=== PATIENT | female | born 1945 | race Caucasian/White ===

== ENCOUNTER 2024-02-28 16:37 | Emergency (ER) | payer MEDICARE, SELFPAY ==
[2024-02-28] VITALS (7 sets, daily range): BP systolic 136–152; BP diastolic 59–77; BMI 35.3
--- NOTE | 2024-02-28 17:07 | EDRN ---
Gabrielle Cedillo PA in room w/ pt at this time.
[2024-02-28 17:11] LABS: % Basophils 1.2 % (0-2); % Eosinophils 7.9 % (0-6); % Immature Granulocytes 0.3 % (0-0.5); % Lymphocytes 19.5 % (20.5-51.1); % Monocytes 10.6 % (1.7-9.3); % Neutrophils 60.5 % (42.2-75.2); Absolute Basophils 0.1 10^3/uL (0-0.2); Absolute Eosinophils 0.5 10^3/uL (0-0.7); Absolute Lymphocytes 1.3 10^3/uL (1.2-3.4); Absolute Monocytes 0.7 10^3/uL (0.1-0.6); Hematocrit 36.2 % (37.0-47.0); Hemoglobin 12.3 g/dL (12.0-16.0); Mean Corpuscular Hgb 30.8 pg (27.0-31.0); Mean Corpuscular Volume 90.5 fL (81.0-99.0); Nucleated Red Blood Cells % 0 %; Platelet Count 237 10^3/uL (130-400); Red Cell Dist. Width 13.6 % (11.5-14.5); White Blood Cell Count 6.6 10^3/uL (4.8-10.8)
[2024-02-28 17:24] LABS: ALT (SGPT) 11 U/L (0-35); AST (SGOT) 20 U/L (14-36); Albumin 4.1 g/dl (3.5-5.0); Alkaline Phosphatase 97 U/L (38-126); Blood Urea Nitrogen 31 mg/dl (7-17); Calcium 8.9 mg/dl (8.4-10.2); Carbon Dioxide 25 mmol/L (22-30); Chloride 105 mmol/L (98-107); Estimated Creatinine Clearance 37 ml/min; Glucose 114 mg/dl (70-99); Potassium 4.7 mmol/L (3.5-5.1); Sodium 138 mmol/L (135-145); Total Bilirubin 0.4 mg/dl (0.2-1.3); Total Protein 6.7 g/dl (6.3-8.2); eGFR 35.23
[2024-02-28 17:35] LABS: Troponin I < 0.012 ng/ml
--- NOTE | 2024-02-28 18:04 | ED.GENMED ---
History of Present Illness
<Cathleen Cedillo PA-C - Last Filed: 02/28/24 19:16>
General
Chief Complaint: Chest Pain
Source: patient
Exam Limitations: none
Time Seen by Provider: 02/28/24 16:53
Nursing documentation reviewed up to this point in time: agreed with
History of Present Illness
History of Present Illness:
Patient is a 78-year-old female with past medical history of hypertension,GERD, who presents to the emergency department from her nursing facility for evaluation of chest pain that started 30 to 60 minutes ago. Patient reports that the pain started
while she was sitting at rest, watching funny videos about cats and dogs. Patient reports that it has been about a 5 out of 10 the entire time. Patient denies that it radiates anywhere, she denies any pain into her neck, jaw, arms. Patient denies
any associated shortness of breath, nausea, vomiting. Patient denies any numbness, weakness, tingling of any of her extremities. Patient reports no significant cardiac history, she reports that she does not follow-up with a institutional nutrition consultant regularly
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 Patient denies any recent lower extremity edema.
Past History
<Cathleen Cedillo PA-C - Last Filed: 02/28/24 19:16>
Past History
ED Past Medical History: Cancer (Skin CA, basal cell left eye), GERD, HTN, Renal failure (Chronic kidney disease) and Other (Osteoarthritis, Blind )
ED Past Surgical History: Appendectomy and Gynecological (Hysterectomy)
Social History
Tobacco: Former smoker
Alcohol: None
Drug: None
Personal:
Living: assisted living
Family History
Family History: Other (Noncontributory)
Review of Systems
<Cathleen Cedillo PA-C - Last Filed: 02/28/24 19:16>
Review of Systems
All Other Systems: Not applicable
Constitutional: Reports no symptoms
EENT: Reports no symptoms
Respiratory: Reports no symptoms
Cardiac: Reports chest pain
ABD/GI: Reports no symptoms
: Reports no symptoms
Musculoskeletal: Reports no symptoms
Skin: Reports no symptoms
Neurological: Reports no symptoms
Endocrine: Reports no symptoms
Hematologic/Lymphatic: Reports no symptoms
Psychiatric: Reports no symptoms
Phy Exam
<Cathleen Cedillo PA-C - Last Filed: 02/28/24 19:16>
General Physical Exam
General Presentation: well appearing and no apparent distress
General Skin: warm and dry
General Habitus: normal
General Mental: alert
General Hydration: appears well hydrated
ENT Exam
ENT Exam: EOMI, pharynx normal, neck supple and normocephalic
Eye Exam
Eye Exam: PERRL, cornea clear and conjunctiva normal
Cardiovascular Exam
Cardiovascular Exam: regular rate/rhythm, no edema, no murmur and normal peripheral pulses
Pulmonary Exam
Pulmonary Exam: lungs clear, no respiratory distress, no rales, no crackles, no rhonchi, no stridor, no wheezing and no cough
Gastrointestinal Exam
Gastrointestinal Exam: normal bowel sounds, non tender, soft, no organomegaly, no pulsatile mass and non distended
Neurological Exam
Neurological Exam: alert, oriented x3, no motor deficits and speech normal
Musculoskeletal Exam
Musculoskeletal Exam: full ROM, no edema and other (Mild tenderness to palpation over the inferior aspect of the patient's sternum which does reproduce the patient's pain)
Skin Exam
Skin Exam: normal color, warm/dry, no rash and no petechia
Psychiatric Exam
Psychiatric Exam: normal mood/affect
Scores
<Cathleen Cedillo PA-C - Last Filed: 02/28/24 19:16>
Heart Score for Chest Pain Patients
STEMI patient?: No
History: Slightly or Non-Suspicious
ECG: Normal
Age: >/= 65 years
Risk Factors: 1 or 2 Risk Factors
Troponin: </= Normal Limit
Heart Score for Chest Pain Patients: 3
Heart Score Risk: 2.5% MACE over next 6 weeks
<MAMADOU Csatillo - Last Filed: 02/28/24 22:05>
Heart Score for Chest Pain Patients
Heart Score for Chest Pain Patients: 3
Heart Score Risk: 2.5% MACE over next 6 weeks
Course
<Cathleen Cedillo PA-C - Last Filed: 02/28/24 19:16>
Orders/Labs/Results
Orders:
Orders
02/28/24 16:48
ECG [Electrocardiogram (*1)] Urgent
Reason for Study: Chest Pain
02/28/24 16:49
EKG- Treatment ONCE
02/28/24 16:55
Cardiac Monitoring- Treatment ONCE
IV Insert/Care/Rem.- Treatment PRN
02/28/24 17:00
Complete Blood Count/With Diff Urgent
Comprehensive Metabolic Panel Urgent
Troponin I Urgent
02/28/24 17:15
CR Chest Portable - 1 View Urgent
Comment:
Reason For Exam: chest pain
Reason Study Needs to be Portable: Other
02/28/24 18:49
Morphine Sulfate 2 mg IV NOW STA
02/28/24 20:25
Electrocardiogram (*1) Stat
Reason for Study: Other
Other Reason for Exam: chest pain
EKG- Treatment ONCE
02/28/24 21:22
Troponin I Urgent
Abnormal Lab Results
02/28/24
17:00
RBC 4.00 L 10^6/uL
(4.20-5.40)
Hct 36.2 L %
(37.0-47.0)
MPV 11.0 H fL
(7.4-10.4)
Absolute Monos (auto) 0.7 H 10^3/uL
(0.1-0.6)
Lymphocytes % 19.5 L %
(20.5-51.1)
Monocytes % 10.6 H %
(1.7-9.3)
Eosinophils % 7.9 H %
(0-6)
BUN 31 H mg/dl
(7-17)
Creatinine 1.5 H mg/dL
(0.6-1.0)
Glucose 114 H mg/dl
(70-99)
02/28/24 17:00
02/28/24 17:00
Vital Signs
Initial and Last Documented VS:
Initial Vital Signs
Temp Pulse Resp BP Pulse Ox
98.3 F 69 16 140/77 99
02/28/24 16:39 02/28/24 16:39 02/28/24 16:39 02/28/24 16:39 02/28/24 16:39
Last Documented Vital Signs
Temp Pulse Resp BP Pulse Ox
98.2 F 69 20 142/69 98
02/28/24 19:29 02/28/24 21:26 02/28/24 21:26 02/28/24 21:26 02/28/24 21:26
<MAMADOU Castillo - Last Filed: 02/28/24 22:05>
Orders/Labs/Results
Orders:
Orders
02/28/24 16:48
ECG [Electrocardiogram (*1)] Urgent
Reason for Study: Chest Pain
02/28/24 16:49
EKG- Treatment ONCE
02/28/24 16:55
Cardiac Monitoring- Treatment ONCE
IV Insert/Care/Rem.- Treatment PRN
02/28/24 17:00
Complete Blood Count/With Diff Urgent
Comprehensive Metabolic Panel Urgent
Troponin I Urgent
02/28/24 17:15
CR Chest Portable - 1 View Urgent
Comment:
Reason For Exam: chest pain
Reason Study Needs to be Portable: Other
02/28/24 18:49
Morphine Sulfate 2 mg IV NOW STA
02/28/24 20:25
Electrocardiogram (*1) Stat
Reason for Study: Other
Other Reason for Exam: chest pain
EKG- Treatment ONCE
02/28/24 21:22
Troponin I Urgent
Abnormal Lab Results
02/28/24
17:00
RBC 4.00 L 10^6/uL
(4.20-5.40)
Hct 36.2 L %
(37.0-47.0)
MPV 11.0 H fL
(7.4-10.4)
Absolute Monos (auto) 0.7 H 10^3/uL
(0.1-0.6)
Lymphocytes % 19.5 L %
(20.5-51.1)
Monocytes % 10.6 H %
(1.7-9.3)
Eosinophils % 7.9 H %
(0-6)
BUN 31 H mg/dl
(7-17)
Creatinine 1.5 H mg/dL
(0.6-1.0)
Glucose 114 H mg/dl
(70-99)
02/28/24 17:00
02/28/24 17:00
Vital Signs
Initial and Last Documented VS:
Initial Vital Signs
Temp Pulse Resp BP Pulse Ox
98.3 F 69 16 140/77 99
02/28/24 16:39 02/28/24 16:39 02/28/24 16:39 02/28/24 16:39 02/28/24 16:39
Last Documented Vital Signs
Temp Pulse Resp BP Pulse Ox
98.2 F 69 20 142/69 98
02/28/24 19:29 02/28/24 21:26 02/28/24 21:26 02/28/24 21:26 02/28/24 21:26
<MAMADOU Castillo - Last Filed: 02/28/24 22:05>
MDM/Problems Addressed
MDM/Problems Addressed:
2200: Received signout for above patient patient remains without chest pain second cardiac troponin negative no acute changes on EKG plan for discharge home as previously discussed.
<Cathleen Cedillo PA-C - Last Filed: 02/28/24 19:16>
*EKG
Interpreted by ED Provider?: Yes
EKG Intrepretation Date: 02/28/24
EKG Intrepretation Time: 16:52
Interpretation: abnormal
Comparison EKG: no changes
Heart Rate: 71
Rate: normal
Rhythm: sinus
[place]: normal axis
Interval: normal interval
QRS Pattern: normal QRS
Ischemia: other (Q waves in the inferior leads, no acute ischemia)
<MAMADOU Castillo - Last Filed: 02/28/24 22:05>
*Critical Care Note
Total Time (30-74mins, 75-104mins- exclusive of procedures): Not Applicable
<Cathleen Cedillo PA-C - Last Filed: 02/28/24 19:16>
Update Note
Update Note:
78-year-old female past medical history of hypertension and GERD presents emergency department for evaluation of pain in the center of her chest that started 30 to 60 minutes ago. Patient denies any associated symptom such as shortness of breath,
diaphoresis, nausea, vomiting. On arrival, patient is mildly hypertensive, afebrile. On exam, patient is very well-appearing, she is in no acute distress, she has a normal cardiopulmonary exam, she does have tenderness to palpation over the center
of the inferior aspect of her chest which she states pain warmed no acute ischemic changes, it is unchanged from previous. Labs were obtained and demonstrate a creatinine of 1.5 which appears to be close to the patient's baseline, labs are
otherwise nonactionable including a negative troponin. Chest x-ray demonstrates no acute disease process. Given the fact that the patient symptoms only started approximately an hour prior to arrival, we will recheck a second troponin 3 hours after
the initial at 2000. If negative, anticipate the patient will be able to be discharged back to her facility with close outpatient cardiology follow-up. Plan discussed with ED attending who agrees.
ED Attending Note
<Cathleen Cedillo PA-C - Last Filed: 02/28/24 19:16>
-
Portions of this chart may have been created with voice recognition software.� Occasional wrong word or��sound alike� substitutions may have occurred due to the inherent limitations of voice recognition software.
Discharge Plan
Departure
Patient Disposition: Home (Routine Discharge)
Date of Disposition: 02/28/24
Time of Disposition: 22:02
Patient with high blood pressure during this ER visit?: Yes
Condition: Good
Covid-19: Not Applicable
Discharge Problem:
Chest pain
Instructions: Chest Pain DCA Follow Up
Prescriptions:
No Action
acetaminophen 325 mg Tablet
650 mg PO Q6H PRN (Reason: mild pain/fever)
thiamine HCl (vitamin B1) 100 mg Tablet
100 mg PO DAILY
docusate sodium 100 mg Capsule
100 mg PO BID Qty: 1 0RF
pantoprazole [Protonix] 40 mg tablet,delayed release (DR/EC)
40 mg PO DAILY Qty: 30 0RF
losartan 50 mg Tablet
50 mg PO DAILY
buspirone 5 mg Tablet
5 mg PO BID
loperamide 2 mg Capsule
2 mg PO [id number] PRN (Reason: diarrhea)
metoprolol succinate 50 mg Tablet Extended Release 24 Hr
50 mg PO DAILY
lorazepam 0.5 mg Tablet
0.5 mg PO BIDPRN PRN (Reason: anxiety)
amlodipine 10 mg Tablet
10 mg PO DAILY
nystatin 100,000 unit/gram Powder
1 applic TOPICAL BID
cranberry extract [Cranberry Concentrate] 500 mg Capsule
500 mg PO DAILY
melatonin 5 mg Tablet
5 mg PO HS
tramadol 50 mg tablet
50 mg PO Q6HPRN PRN (Reason: moderate pain)
Referrals:
JAIME VALERA MD [Family Provider] - Follow up in 2-3 days
Activity Restrictions/Additional Instructions:
You were seen in the emergency department today for evaluation of chest pain. While you were in the emergency department, you had an EKG which shows no dangerous abnormalities. You also had a chest x-ray as well as lab work. We believe it is safe
to be discharged home however we recommend that you follow-up closely with a institutional nutrition consultant for further evaluation and treatment. Please return to the emergency department if you have worsening chest pain, shortness of breath or difficulty breathing,
nausea, persistent vomiting, swelling of 1 or both of your legs, or for any other worsening or concerning symptoms.
Interventions
Interventions:
*Risk Screen - Suicide Last Done: 02/28/24 16:39
*General Assessment Last Done: 02/28/24 16:39
*Neglect/Abuse Screening Last Done: 02/28/24 16:39
ED- Fall Risk Assessment Last Done: 02/28/24 19:29
*ED COVID-19 Vaccine History Last Done: 02/28/24 16:39
ED- Cardiac Assessment Last Done: 02/28/24 19:29
Discharge Date and Time
Print Language: ROMANSH
[2024-02-28 21:54] LABS: Troponin I < 0.012 ng/ml
== END 2024-02-28 23:17 | disposition home or self-care (01) ==
LOC: EMR 16:37
PROVIDERS: Nurse Practitioner; Physician Assistant Medical; EMERGENCY PHYSICIAN Emergency Medicine; FAMILY PHYSICIAN Internal Medicine
DX: R07.89 Other chest pain (principal); I10 Essential (primary) hypertension; K21.9 Gastro-esophageal reflux disease without esophagitis
CPT/HCPCS: 99285; 71045; 80053; 84484; 85025; 93005